=== PATIENT | female | born 1945 | race Caucasian/White ===

== ENCOUNTER 2025-01-03 17:11 | Inpatient (IN) | payer MEDICARE, OTHER, SELFPAY ==
[2025-01-03] VITALS (9 sets, daily range): BP systolic 98–143; BP diastolic 46–96; BMI 30.1; BMI 29.6
--- NOTE | 2025-01-03 13:49 | ED.GENMED ---
History of Present Illness
General
Chief Complaint: Weakness
Time Seen by Provider: 01/03/25 13:32
History of Present Illness
History of Present Illness:
79-year-old female with a past medical history of hypertension presents to the emergency department for evaluation of general malaise and an abnormal EKG. She apparently was seen urgent care 2 days ago for cough, headache, weakness, and fatigue, at
that time had COVID and flu testing that was negative as well as unremarkable bedside labs. She apparently had a chest x-ray that was negative and was started on doxycycline for suspected bronchitis. She was brought back to the urgent care by her
son today due to increasing weakness at which time an EKG revealed atrial fibrillation prompting them to call 911 for transport. Patient states to me that she feels fine, she is unable to provide significant historical details and is disoriented to
time. She denies any chest pain or shortness of breath at this point.
Review of Systems
Review of Systems
Allergies reviewed?: Yes
All Other Systems: ROS reviewed and negative except as documented in HPI and ROS
Phy Exam
Physical Exam
Physical Exam:
GEN: Well appearing, NAD, WDWN
HEENT: Oral mucosa moist, no scleral icterus
Cardiac: Tachycardic and irregular, no murmur, no lower extremity edema
Lung: No respiratory distress, no tachypnea, lungs clear to auscultation bilaterally
MSK: No gross deformity or injuries
Skin: Good color, no pallor or jaundice, no rashes
Neuro: Alert and oriented to self and place, disoriented to time, moves all extremities freely
Psych: Calm, cooperative
Sepsis
Sepsis Screening
Sepsis Assessment: Sepsis Ruled Out
Sepsis Screen
Sepsis Screen: Sepsis Ruled Out
Date: 01/03/25
Time: 17:11
Course
Orders/Labs/Results
Orders:
Orders
01/03/25 13:33
Electrocardiogram (*1) Urgent
Reason for Study: Abnormal EKG
EKG- Treatment ONCE
01/03/25 13:42
Complete Blood Count/With Diff Urgent
Comprehensive Metabolic Panel Urgent
NT-proBNP Urgent
Comment: ADD ON
TSH Reflex To Free T4 Urgent
Comment: ADD ON
Troponin I Urgent
01/03/25 13:49
Add On- LAB Urgent
Tests Added?: TSH w reflex
CR Chest - 2 Views Urgent
Comment:
Reason For Exam: cough, weakness
01/03/25 14:36
CT Head W/o Iv Contrast Urgent
Comment:
Reason For Exam: AMS
01/03/25 14:57
Add On- LAB Urgent
Tests Added?: BNP
01/03/25 16:01
Urinalysis Reflex To Culture Urgent
Date Specimen was Collected: 01/03/25
Time Specimen was Collected: 14:50
01/03/25 16:16
Heparin 4,000 units IV NOW STA
Metoprolol [Lopressor] 25 mg PO NOW STA
Nursing to Place Non Medication Order As Directed
Physician Order: PTT 6 hours after initial start of Heparin infusion
Above order entered?: Yes
01/03/25 16:20
0.9% Sodium Chloride 1000 ml [Nss] 1,000 ml IV BOLUS
01/03/25 16:30
Heparin 19074 Units/250 ml 25,000 units in 250 ml IV PER PROTOCOL
Weight to be used for heparin protocol in kilograms (kg):: 89.9
Protocol:: Cardiac Tx/Acute Coronary
PTT Goal Range to be used:: PTT 73 to 111 seconds
Order type:: Initial
INITIAL Infusion Dose (UNITS/KG/hr) & then follow protocol:: 12 units/kg/hr
Infusion Dose in UNITS/hr & then follow protocol (UNITS/hr):: 1,000
INFUSION RATE in mL/hr & then follow protocol (mL/hr):: 10
PTT less than or equal to 64 seconds:: Increase rate by 200 units/hr (+ 2 mL/hr)
PTT 64.1 to 72.9 seconds:: Increase rate by 100 units/hr (+ 1 mL/hr)
PTT 73 to 111 seconds:: Target Range. No change in rate.
PTT 111.1 to 130.9 seconds:: Decrease rate by 100 units/hr (- 1 mL/hr)
PTT 131 to 199.9 seconds:: HOLD for 1 hr. Then decrease rate by 200 units/hr (- 2 mL/hr)
PTT greater than or equal to 200 seconds:: HOLD for 2 hrs & Notify Provider. Then decrease by 200 units/hr (-
2 mL/hr)
Lab follow-up:: Each change, PTT q6h until 2 consecutive are therapeutic. Then PTT
daily.
01/03/25 16:44
PTT Urgent
Comment: Obtain baseline before beginning heparin infusion if not already collected
01/03/25 16:46
Admit/Transfer Patient As Directed
Co-Sign Provider:
Level of Care: Inpatient admission
Assign to:: Telemetry
Physician / Group: rony
Diagnosis: afib rvr
Reason for Telemetry: Arrhythmia
Date to Stop Telemetry: 01/06/25
Time to Stop Telemetry: 11:00
Reason for Hospitalization: afib rvr
Expected length of stay greater than two midnights?: Yes
ELOS- Estimated Length of Stay in days: 2
I certify the patient meets the requirements for IP care: Yes
Code Status As Directed
Resuscitation Status: Do not resuscitate
Reached after discussion with pt or family/Healthcare POA: Yes
PRN Pain Medication Management As Directed
May give lesser potent ordered pain med per pt: Yes
preference::
Protocol:: Medication orders for pain may be administered in a
manner that supports deferring to patient preference
when the pt is:
- Requesting an ordered lesser potent pain medication.
Least to most potent pain medications are defined
as: acetaminophen < NSAID < tramadol < opioids
(morphine, oxycodone, hydromorphone).
- Requesting a lesser dose of the same medication IF
ORDERED.
- Requesting a less intrusive route of administration
if both routes are prescribed by the provider (PO <
IV).
01/03/25 16:47
DNR Bracelet Application ONCE
01/03/25 22:56
PTT Urgent
Comment: Obtain baseline before beginning heparin infusion if not already collected
01/06/25 11:00
DC Protocol for Telemetry ONCE
Abnormal Lab Results
01/03/25
13:42
Absolute Lymphs (auto) 3.6 H 10^3/uL
(1.2-3.4)
Absolute Monos (auto) 0.9 H 10^3/uL
(0.1-0.6)
Sodium 134 L mmol/L
(135-145)
BUN 20 H mg/dl
(7-17)
Glucose 114 H mg/dl
(70-99)
Calcium 11.1 H mg/dl
(8.4-10.2)
01/03/25 13:42
01/03/25 13:42
Vital Signs
Initial and Last Documented VS:
Initial Vital Signs
Pulse Resp BP Pulse Ox
104 27 115/84 100
01/03/25 13:33 01/03/25 13:33 01/03/25 13:33 01/03/25 13:33
Last Documented Vital Signs
Temp Pulse Resp BP Pulse Ox
98 F 97 19 101/56 97
01/03/25 13:39 01/03/25 17:00 01/03/25 17:00 01/03/25 16:45 01/03/25 16:30
MDM/Problems Addressed
MDM/Problems Addressed:
Unclear etiology to the patient's intermittent encephalopathy, certainly could be on the basis of poor p.o. intake for the past 24 to 48 hours. She is noted to be in a mildly rapid A-fib on arrival with no known history of this, will rate control
with oral beta-blockers at this time. Will start on heparin in the event that any cardiac interventions would be planned by cardiology. She does have a cough and had outpatient negative COVID and flu test at urgent care, coughing may be on the
basis of pulmonary fluid retention due to untreated A-fib however does not appear grossly volume overloaded to warrant diuresis at this point. Will admit to the hospitalist service for further management
Comment
Comment:
Initial EKG independently interpreted by me shows an atrial fibrillation with a rapid response at a rate of [address] changes concerning for ischemia
*Pulse Oximetry
Patient hypoxic: no
Comment: 100% room air
*Critical Care Note
Total Time (30-74mins, 75-104mins- exclusive of procedures): Not Applicable
ED Attending Note
-
Portions of this chart may have been created with voice recognition software.� Occasional wrong word or��sound alike� substitutions may have occurred due to the inherent limitations of voice recognition software.
Discharge Plan
Departure
Patient Disposition: Admit
Date of Disposition: 01/03/25
Time of Disposition: 16:28
Presentation/result/management discussed w/ accepting MD/DO: Hospitalist
Discharge Problem:
Atrial fibrillation with RVR, Encephalopathy, Generalized weakness
Referrals:
Pablo Mayers MD [Family Provider, Family Practice]
Interventions
Interventions:
*Risk Screen - Suicide Last Done: 01/03/25 13:39
*General Assessment Last Done: 01/03/25 13:39
*Neglect/Abuse Screening Last Done: 01/03/25 13:39
*ED- Fall Risk Assessment Last Done: 01/03/25 13:39
*ED COVID-19 Vaccine History Last Done: 01/03/25 13:39
ED- Cardiac Assessment Last Done: 01/03/25 13:58
ED- Neurological Assessment Last Done: 01/03/25 13:58
ED- Pulmonary Assessment Last Done: 01/03/25 13:58
Discharge Date and Time
Print Language: GERMAN
[2025-01-03 13:50] LABS: % Basophils 0.6 % (0-2); % Immature Granulocytes 0.4 % (0-0.5); % Lymphocytes 35.1 % (20.5-51.1); % Monocytes 8.8 % (1.7-9.3); % Neutrophils 54.1 % (42.2-75.2); Absolute Basophils 0.1 10^3/uL (0-0.2); Absolute Eosinophils 0.1 10^3/uL (0-0.7); Absolute Lymphocytes 3.6 10^3/uL (1.2-3.4); Absolute Monocytes 0.9 10^3/uL (0.1-0.6); Absolute Neutrophils 5.5 10^3/uL (1.4-6.5); Hematocrit 42.5 % (37.0-47.0); Hemoglobin 14.4 g/dL (12.0-16.0); Mean Corp Hgb Conc. 33.9 g/dL (33.0-37.0); Mean Corpuscular Hgb 28.5 pg (27.0-31.0); Mean Corpuscular Volume 84.2 fL (81.0-99.0); Mean Platelet Volume 10.3 fL (7.4-10.4); Nucleated Red Blood Cells % 0 %; Platelet Count 356 10^3/uL (130-400); Red Blood Cell Count 5.05 10^6/uL (4.20-5.40); Red Cell Dist. Width 13.6 % (11.5-14.5); White Blood Cell Count 10.1 10^3/uL (4.8-10.8)
[2025-01-03 14:19] LABS: Troponin I < 0.012 ng/ml
[2025-01-03 14:27] LABS: ALT (SGPT) 25 U/L (0-35); AST (SGOT) 25 U/L (14-36); Alkaline Phosphatase 113 U/L (38-126); Blood Urea Nitrogen 20 mg/dl (7-17); Calcium 11.1 mg/dl (8.4-10.2); Carbon Dioxide 27 mmol/L (22-30); Chloride 101 mmol/L (98-107); Estimated Creatinine Clearance 58 ml/min; Glucose 114 mg/dl (70-99); Potassium 3.9 mmol/L (3.5-5.1); Sodium 134 mmol/L (135-145); Total Protein 6.5 g/dl (6.3-8.2); eGFR > 60.00
[2025-01-03 14:44] LABS: TSH Reflex To Free T4 1.49 uIU/ml (0.47-4.68)
[2025-01-03 15:47] LABS: NT-proBNP 4820 pg/ml
[2025-01-03 16:07] LABS: Urine Albumin Negative (Neg - Trace); Urine Bilirubin Negative (Negative); Urine Character Clear (Clear); Urine Color Yellow; Urine Glucose Negative (Negative); Urine Ketone Negative (Negative); Urine Leukocyte Negative (Negative); Urine Nitrite Negative (Negative); Urine Occult Blood Negative (Negative); Urine Urobilinogen Negative (Neg - 1+)
[2025-01-03] MEDS: NSS 1000 IV ×2 (16:44→18:48)
[2025-01-03] MEDS: LOPRESSOR 25 MG PO (16:45)
--- NOTE | 2025-01-03 16:48 | HPS.HSE ---
Addendum entered and electronically signed by Franklyn Cadet MD 01/03/25 22:40:
Started metoprolol succinate 12.5 mg BID.
Original Note:
Family Physician
-
Family Physician: Pablo Mayers
Chief Complaint
-
upper respiratory symptoms
History of Present Illness
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 She was seen in urgent care 2 days ago for cough,
headache, weakness and fatigue and had flu and COVID testing that was negative and unremarkable labs. She had a chest x-ray that was negative and started on doxycycline for suspected bronchitis. She was brought back to urgent care by her son today
due to increasing weakness and during this visit she was more out of it and confused. EKG revealed atrial fibrillation prompting them to call 911. Patient states that she feels fine and is unable to provide significant history and is disoriented
to time. Eyes any chest pain or shortness of breath. Did have some dizziness today. No vomiting or diarrhea.
Does not smoke or drink alcohol.
No prior cardiac history.
Medical History
Past Medical History
Past Medical History: Reports Other (COPD on 2 L based, hypercholesteremia, hypertension)
Past Surgical History: Reports Orthopedic
Social History
Tobacco: Former Smoker
Alcohol: Former
Drug: None
Family History
Family History: Not pertinent
Allergies / Home Medications
Allergies reflects when Allergies were last updated in [facility].
Home Medications with original date entered in [facility]
Allergy/Medication List:
Allergies
Allergy/AdvReac Type Severity Reaction Status Date / Time
No Known Allergies Allergy Verified 01/03/25 13:43
Review of Systems
-
History Source: Patient
A 12 point ROS was completed and negative except as noted: Yes
Constitutional: Reports No Symptoms
EENT: Reports No Symptoms
Respiratory: Reports No Symptoms
Cardiac: Reports No Symptoms
Abdomen/GI: Reports No Symptoms
: Reports No Symptoms
Musculoskeletal: Reports No Symptoms
Skin: Reports No Symptoms
Neurological: Reports No Symptoms
Endocrine: Reports No Symptoms
Hematologic/Lymphatic: Reports No Symptoms
Psych: Reports No Symptoms
Physical Exam
Vital Signs
Vital Signs
Temp Pulse Resp BP Pulse Ox
98 F 91 23 101/56 98
01/03/25 13:39 01/03/25 16:45 01/03/25 16:00 01/03/25 16:45 01/03/25 15:45
Physical Exam
General: Well Developed, Well Nourished and No Apparent Distress
HEENT: NormoCephalic, Moist mucous membranes and Atraumatic
Respiratory: Clear
Cardiac: S1/S2 and Regular Rhythm; No Murmur or Rub
GI: Soft, Non Tender, Non Distended and Normal Bowel Sounds; No Organomegaly
Rectal: Deferred by Provider
Musculoskeletal: No Clubbing, No Cyanosis and No Edema
Skin: No Rash
Neuro: Nonfocal/grossly intact
Laboratory Results
-
01/03/25 13:42
01/03/25 13:42
Laboratory Results
Total Bilirubin 1.0 mg/dl (0.2-1.3) 01/03/25 13:42
AST 25 U/L (14-36) 01/03/25 13:42
ALT 25 U/L (0-35) 01/03/25 13:42
Alkaline Phosphatase 113 U/L (38-126) 01/03/25 13:42
Troponin I < 0.012 ng/ml 01/03/25 13:42
Data Reviewed
-
Lab Data: Labs Reviewed by me
Old Records: Reviewed
Impression/Plan
-
IMPRESSION:
PLAN:
# New onset atrial fibrillation with intermittent RVR likely from hypovolemia/URI
-EKG shows atrial fibrillation with RVR heart rate 106
- Variable rates
-Lopressor given
- Heparin drip
- Check echo
- Cardiology consulted
# Metabolic encephalopathy/generalized malaise secondary to likely viral URI/acute bronchitis
-Mental status improved at this time
- CT head shows no acute abnormality
- Chest x-ray unremarkable
- Urinalysis unremarkable
-Continue doxycycline
# Mild hypercalcemia secondary to hypovolemia
-Calcium 11.1
-Monitor with IV fluids
COPD on 2 L baseline
- Continue inhalers
Essential hypertension
Hypercholesterolemia
- Continue statin
DNR/DNI
DVT prophylaxis�heparin drip
Regular diet
[2025-01-03] MEDS: HEPARIN 4000 UNITS IV (16:55)
[2025-01-03] MEDS: HEPARIN 25000 UNITS/250 ML IV (16:56)
[2025-01-03 17:06] LABS: APTT 26.2 Sec (23.4-35.0)
--- NOTE | 2025-01-03 19:40 | PTCARENOTE ---
Received pt from ED into room 408-2. Pt ambulatory to bed with assist x1. Pt AAOx2. Forgetful at times, bed alarm in place. Educated pt to ring for assistance. NS @ 80 ml/hr infusing. Heparin gtt at 10ml/hr infusing. No needs at this time.
[2025-01-04 00:06] LABS: APTT 48.5 Sec (23.4-35.0)
[2025-01-04 03:06] VITALS: BP 141/68
[2025-01-04] MEDS: NSS 1000 IV ×2 (06:41→20:58)
[2025-01-04 06:54] LABS: % Basophils 0.6 % (0-2); % Eosinophils 1.8 % (0-6); % Immature Granulocytes 0.3 % (0-0.5); % Lymphocytes 43.6 % (20.5-51.1); % Neutrophils 44.7 % (42.2-75.2); Absolute Basophils 0.1 10^3/uL (0-0.2); Absolute Eosinophils 0.1 10^3/uL (0-0.7); Absolute Lymphocytes 3.5 10^3/uL (1.2-3.4); Absolute Monocytes 0.7 10^3/uL (0.1-0.6); Absolute Neutrophils 3.6 10^3/uL (1.4-6.5); Hematocrit 35.9 % (37.0-47.0); Hemoglobin 12.1 g/dL (12.0-16.0); Mean Corp Hgb Conc. 33.7 g/dL (33.0-37.0); Mean Corpuscular Hgb 28.9 pg (27.0-31.0); Mean Corpuscular Volume 85.7 fL (81.0-99.0); Mean Platelet Volume 11.7 fL (7.4-10.4); Nucleated Red Blood Cells % 0 %; Platelet Count 282 10^3/uL (130-400); Red Blood Cell Count 4.19 10^6/uL (4.20-5.40); Red Cell Dist. Width 13.8 % (11.5-14.5)
[2025-01-04 07:04] LABS: APTT 110.1 Sec (23.4-35.0)
--- NOTE | 2025-01-04 07:21 | PTCARENOTE ---
Pt aaox3 able to make her needs known,forgetful at times only.Denies pain or any discomfort.Pt was in afibb in beginning of shift later pt converted to Sinus rhythm.EKG was done on pt. 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
drip as per protocol. No new orders at this time.Plan of care continued.
[2025-01-04 07:33] LABS: ALT (SGPT) 21 U/L (0-35); AST (SGOT) 24 U/L (14-36); Albumin 3.3 g/dl (3.5-5.0); Alkaline Phosphatase 90 U/L (38-126); Blood Urea Nitrogen 13 mg/dl (7-17); Calcium 9.4 mg/dl (8.4-10.2); Carbon Dioxide 26 mmol/L (22-30); Chloride 107 mmol/L (98-107); Estimated Creatinine Clearance 73 ml/min; Glucose 112 mg/dl (70-99); Potassium 3.7 mmol/L (3.5-5.1); Sodium 136 mmol/L (135-145); Total Bilirubin 0.6 mg/dl (0.2-1.3); Total Protein 5.4 g/dl (6.3-8.2); eGFR > 60.00
--- NOTE | 2025-01-04 07:41 | W.PN.HOSP.TC ---
Today's Communication/Plan
-
pending DOAC pricing.
Echocardiogram pending.
Assessment / Plan
Assessment / Plan
Impression:
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 She was seen in urgent care 2 days ago for cough,
headache, weakness and fatigue and had flu and COVID testing that was negative and unremarkable labs. She had a chest x-ray that was negative and started on doxycycline for suspected bronchitis. She was brought back to urgent care by her son today
due to increasing weakness and during this visit she was more out of it and confused. EKG revealed atrial fibrillation , admitted to the hospital and started on beta-norma, converted to sinus rhythm, seen by cardiology, echocardiogram pending.
Assessment/plan:
New onset atrial fibrillation with intermittent RVR likely from hypovolemia/URI
-EKG shows atrial fibrillation with RVR heart rate 106
- Variable rates
-Lopressor given
- Heparin drip
- Check echo
- Cardiology consulted
01/04
Patient converted to sinus rhythm
Seen by cardiology, started on Eliquis.
science manager consulted for a DOAC pricing.
Echocardiogram pending
Acute Metabolic encephalopathy/generalized malaise secondary to likely viral URI/acute bronchitis
-Mental status improved at this time
- CT head shows no acute abnormality
- Chest x-ray unremarkable
- Urinalysis unremarkable
-Continue doxycycline
Mild hypercalcemia secondary to hypovolemia
-Calcium 11.1
-Improved with IV fluids
COPD on 2 L baseline
- Continue inhalers
Essential hypertension
Continue metoprolol
Hypercholesterolemia
- Continue statin
DVT prophylaxis�heparin drip
Regular diet
CODE STATUS: DNR/DNI
DVT prophylaxis: Eliquis
Diet: Regular diet
Disposition: pending DOAC pricing.
Echocardiogram pending
Total time spent on today's encounter was 65 minutes which included time spent in counseling the patient/family regarding diagnosis and treatment plan as listed above, goals of care, and symptom management. Case was discussed with nursing staff,
specialists, and care coordinators/case management. All labs and imaging personally reviewed by me. Remainder the time spent in detailed review of previous records, lab data, imaging, and other medical provider documentation.
Anticipated Discharge: Within 24 hours
Subjective/Interval History
-
Date of Service: January 04, 2025
Patient seen and examined at bedside, denies any chest pain or shortness of breath, no abdominal pain, no nausea, no vomiting, no diarrhea or constipation.
Back to sinus rythm.
Objective Data
-
Labs:
Laboratory Results
01/03/25 01/04/25 01/04/25
23:37 06:41 12:45
WBC 8.0
Hgb 12.1
Hct 35.9 L
Plt Count 282 D
APTT 48.5 H 110.1 H Pending
Sodium 136
Potassium 3.7
Chloride 107
Carbon Dioxide 26
BUN 13
Creatinine 0.7
Glucose 112 H
Calcium 9.4 D
Total Bilirubin 0.6
AST 24
ALT 21
Alkaline Phosphatase 90
Vital Signs:
Vital Signs
Temp Pulse Resp BP Pulse Ox
98.0 F 67 16 141/68 100
01/04/25 03:06 01/04/25 03:06 01/04/25 03:06 01/04/25 03:06 01/04/25 03:06
I&O
01/03/25 01/04/25 01/05/25
06:59 06:59 06:59
Intake Total 2059
Output Total 2074
Balance -
Physical Exam
-
General: Well Developed, Well Nourished, No Apparent Distress and Comfortable
HEENT: Normocephalic, Atraumatic, Moist Mucous Membranes, No Ptosis, PERRLA and Nose Appears Normal
Respiratory: Clear to Auscultation and Non Labored Respirations
Cardiac: Regular Rhythm and S1/S2
Breast: Deferred by me
GI: Soft, Nontender, Nondistended and Normal Bowel Sounds
Genito-urinary: No Costovertebral Tender
Musculoskeletal: No Clubbing, No Cyanosis and No Edema
Skin: Warm
Neuro: Awake, Alert, Oriented, AO x 3 and No Motor Deficits
Psych: Calm
Data Reviewed
-
Diagnostic Radiology: Image personally visualized and interpreted and Report Reviewed by me
CT Scan: Image personally visualized and interpreted and Report Reviewed by me
Ultrasound: Image personally visualized and interpreted and Report Reviewed by me
MRI: Image personally visualized and interpreted and Report Reviewed by me
Medical Tests (Nuc Med, Echo etc): Image personally visualized and interpreted and Report Reviewed by me
Labs: Labs Reviewed by me
Old Records: Reviewed
[2025-01-04] MEDS: LOPRESSOR 12.5 MG PO ×2 (08:37→20:59)
[2025-01-04 08:45] VITALS: BP 137/61
--- NOTE | 2025-01-04 10:33 | CON.CAR ---
Consultation
Consultation Request
Date/Time Consultation Requested: 01/03/2025 at 22:39
Date/Time Consultation Performed: 01/04/2025 at 10:00
Requesting Provider: Dr. Cadet
Performing Provider: Dr. Sykes
Reason for Consultation: AF w RVR
Medical History
-
Chief Complaint: AF w RVR
History of Present Illness:
79-year-old female with history of COPD, hyperlipidemia, hypertension who presents with 1 week of malaise and shortness of breath, found to be in A-fib with RVR. She recently moved here from [place] and follows with Dr. Higginbotham for cardiology. She
has never been told she has atrial fibrillation before. She was seen in urgent care twice this week and diagnosed with URI. The second time they sent her into the hospital because they noted atrial fibrillation on her ECG. She received IV fluids
and metoprolol in the ER and is now in NSR. She feels better. She denies chest pain, palpitations, shortness of breath, and lower extremity edema.
Past Medical History
Past Medical History: Other (As above)
Past Surgical History: Other (Not relevant)
Social History
Tobacco: Non-Smoker
Living: Alone
Family History
Family History: Reviewed & Not Pertinent
Allergies / Home Medications
Allergy/AdvReac Type Severity Reaction Status Date / Time
No Known Allergies Allergy Verified 01/03/25 13:43
Review of Systems
-
All other systems: Negative unless noted
Physical Exam
Vital Signs
Temp Pulse Resp BP Pulse Ox
97.6 F 68 18 137/61 98
01/04/25 08:45 01/04/25 08:45 01/04/25 08:45 01/04/25 08:45 01/04/25 08:45
Lab Results
01/04/25 06:41
01/04/25 06:41
Troponin I < 0.012 ng/ml 01/03/25 13:42
Qoe-J-Drueskjyljn Pept 4820 pg/ml 01/03/25 13:42
Physical Exam
General: Well Developed and Well Nourished
Respiratory: Clear and Non Labored Respirations
Cardiac: S1/S2 and Regular Rhythm; Negative Murmur or Peripheral Edema
Neuro: AO x 3
Impression / Plan
-
79-year-old female with history of COPD, hyperlipidemia, hypertension who presents with 1 week of malaise and shortness of breath, found to be in A-fib with RVR.
Paroxysmal atrial fibrillation
-New diagnosis this admission. Possibly symptomatic with malaise and mild shortness of breath. No palpitations.
-She converted to NSR around 1 AM on 01/04/2025 after receiving p.o. metoprolol
-Continue metoprolol 12.5 mg twice daily
-[id number] at least 4 (age, female, hypertension)
-Case management to alvares Eliquis and Xarelto
-TTE tomorrow
Hypertension
-Clarify home meds. Normotensive here.
Data Reviewed
-
EKG: Tracing Personally Visualized and interpreted, Discussed with Physician and Discussed with Patient
Labs: Labs Reviewed by me and Discussed with Patient
[2025-01-04 11:29] VITALS: BP 132/64
[2025-01-04 13:11] LABS: APTT 32.1 Sec (23.4-35.0)
[2025-01-04] MEDS: ELIQUIS 5 MG PO ×2 (13:34→20:59)
--- NOTE | 2025-01-04 14:08 | CM ---
project management manager reviewed patient's chart and patient reports that she lives alone in a one story home with no steps to enter, patient is independent with adl's and ambulation, patient has home oxygen but does not remember the name of the oxygen
company. case technician was asked to obtain the cost of Eliquis and Xarelto, Eliquis is $140.11 per month and Xarelto is $138.22 per month. Emily is aware of cost.
PCP: Pablo Mayers
Pharmacy: [facility] in [place]
[2025-01-04 15:33] VITALS: BP 141/65
[2025-01-04 19:32] VITALS: BP 138/65
[2025-01-04 23:02] VITALS: BP 147/71
[2025-01-05 03:21] VITALS: BP 140/80
[2025-01-05 06:38] LABS: Hematocrit 37.7 % (37.0-47.0); Hemoglobin 12.4 g/dL (12.0-16.0); Mean Corp Hgb Conc. 32.9 g/dL (33.0-37.0); Mean Corpuscular Hgb 28.1 pg (27.0-31.0); Mean Corpuscular Volume 85.5 fL (81.0-99.0); Mean Platelet Volume 11.1 fL (7.4-10.4); Platelet Count 299 10^3/uL (130-400); Red Blood Cell Count 4.41 10^6/uL (4.20-5.40); Red Cell Dist. Width 13.6 % (11.5-14.5); White Blood Cell Count 6.6 10^3/uL (4.8-10.8)
[2025-01-05 07:31] LABS: Blood Urea Nitrogen 14 mg/dl (7-17); Carbon Dioxide 22 mmol/L (22-30); Chloride 112 mmol/L (98-107); Estimated Creatinine Clearance 73 ml/min; Glucose 104 mg/dl (70-99); Potassium 3.9 mmol/L (3.5-5.1); Sodium 140 mmol/L (135-145); eGFR > 60.00
--- NOTE | 2025-01-05 07:52 | W.PN.CD ---
Today's Communication / Plan
-
- Toprol XL 12.5 mg BID
- Eliquis 5 mg BID
- KCL x1 today
- Consider starting SSRI
- Likely discharge after ECHO- if normal.
Impression / Plan
-
79-year-old female with history of COPD, hyperlipidemia, hypertension who presents with 1 week of malaise and shortness of breath, found to be in A-fib with RVR.
Paroxysmal atrial fibrillation
-New diagnosis this admission. Possibly symptomatic with malaise and mild shortness of breath. No palpitations.
-She converted to NSR around 1 AM on 01/04/2025 after receiving p.o. metoprolol
-Continue metoprolol 12.5 mg twice daily
-[id number] at least 4 (age, female, hypertension)
-Case management to alvares Eligonzalez and Xarelto
-TTE today
- Replace K for hypokalemia.
Hypertension
-Clarify home meds. Normotensive here.
Depression
- Sleepy most of the time, depressed, loss of appetite, withdrawn, loss of interest.
- Depression evaluation
- TSH 1.49
- Consider SSRI
Physical Exam
Vital Signs/Labs
Vital Signs
Temp Pulse Resp BP Pulse Ox
97.6 F 71 18 140/80 93
01/05/25 03:21 01/05/25 03:21 01/05/25 03:21 01/05/25 03:21 01/05/25 03:21
01/04/25 01/05/25 01/06/25
06:59 06:59 06:59
Actual Weight 88.314 kg
01/05/25 06:24
01/05/25 06:24
APTT 32.1 Sec (23.4-35.0) 01/04/25 12:51
01/03/25
13:42
Cav-T-Effslabqgvq Pept 4820
LAB Results
01/03/25
13:42
Troponin I < 0.012
Physical Exam
Constitutional: No acute distress and Comfortable
EENT: Anicteric and Moist mucous membranes
Cardiovascular: Rhythm & rate is regular, Pedal edema is absent, JVD pressure is normal and Murmur/rub/gallop absent
Respiratory: Respiratory effort normal, Lungs clear to auscul. and Wheeze Absent
GI: Soft, Non tender and Normal bowel sounds
Neuro/Psych: Alert, Oriented and AO x 3
Data Reviewed
-
Date of Service: January 05, 2025
Medical Decision Making: Reviewed Test Results, Test Interpretation and Review of Case with other Provider
EKG: Tracing Personally Visualized and interpreted
Echo: Ordered by me
Labs: Labs Reviewed by me
Old Records: Reviewed
[2025-01-05 08:05] VITALS: BP 169/83
[2025-01-05] MEDS: LOPRESSOR 12.5 MG PO (09:15)
[2025-01-05] MEDS: ELIQUIS 5 MG PO (09:16)
--- NOTE | 2025-01-05 09:48 | W.PN.HOSP.TC ---
Addendum entered and electronically signed by Mariaa Ronquillo MD 01/06/25 08:08:
Chronic hypoxic respiratory failure
Original Note:
Today's Communication/Plan
-
dc to home after PT/OT evals
Assessment / Plan
Assessment / Plan
Echo 01/05:
Normal biventricular size and systolic function without regional wall motion
abnormality.
Normal diastolic function.
Mild to moderate mitral regurgitation.
Mildly dilated right atrium.
Mild tricuspid regurgitation.
Moderate pulmonary HTN, estimated PASP 61 mmHg.
No prior study available for comparison
Assessment:
New onset Parox A.Fib
- now in NSR; on Lopressor + Eliquis
- Echo: as above
- OP Cards f/u
Acute Metabolic encephalopathy/generalized malaise secondary to likely viral URI/acute bronchitis
- resolved
- CT head negative
Mild hypercalcemia secondary to hypovolemia
- calcium 11.1
- Improved with IV fluids
COPD on 2 L baseline
- continue inhalers
Essential hypertension
- continue metoprolol
Hypercholesterolemia
- continue statin
DVT ppx: Eliquis
Code: DNR/DNI
More than 30 minutes spent in discharge including
Final examination of the patient
Summarizing hospital stay
Instructions for continuing care to all relevant caregivers
Preparation of discharge records, prescriptions, and referral forms
Total time spent (in minutes): 41
Anticipated Discharge: Today
Subjective/Interval History
-
Date of Service: January 05, 2025
resting comfortably, no complaint at present
Objective Data
-
Labs:
Laboratory Results
01/05/25
06:24
WBC 6.6
Hgb 12.4
Hct 37.7
Plt Count 299
Sodium 140
Potassium 3.9
Chloride 112 H
Carbon Dioxide 22
BUN 14
Creatinine 0.7
Glucose 104 H
Calcium 10.0
Vital Signs:
Vital Signs
Temp Pulse Resp BP Pulse Ox
97.9 F 78 18 168/80 98
01/05/25 08:05 01/05/25 09:15 01/05/25 08:05 01/05/25 09:15 01/05/25 08:05
I&O
01/04/25 01/05/25 01/06/25
06:59 06:59 06:59
Intake Total 2059
Output Total 2074
Balance - / -
Physical Exam
-
General: No Apparent Distress
HEENT: Normocephalic and Atraumatic
Respiratory: Negative Wheezes
Cardiac: Regular Rhythm and S1/S2
GI: Soft and Nontender
Genito-urinary: No Costovertebral Tender
Neuro: AO x 3
Hematologic / Lymphatic: No Lymphadenopathy
Psych: Calm
Data Reviewed
-
Total Time Spent with Patient (in minutes): 41
Labs: Labs Reviewed by me
[2025-01-05 11:53] VITALS: BP 134/71
--- NOTE | 2025-01-05 13:21 | W.DS.TRANS ---
DC Summary - Access Services Assistant
-
Discharge Instructions:
Discharge Diagnosis/Procedures upper respiratory tract infection and new onset
A. Fib
Diet Regular
Activity As tolerated
Instructions:
Stand-Alone Forms:
Changes to Home Medications: No
Discharge Medications:
DC Medications w/original date entered in [employer]
apixaban 5 mg tablet (Eliquis) 5 mg PO BID #60 tabs 01/05/25
metoprolol tartrate 25 mg tablet 12.5 mg (1/2 x 25 mg) PO BID #30 tabs 01/05/25
Home Medication Changes
Pending Results: No
Total time spent discharging patient (in min): 41
--- NOTE | 2025-01-05 13:59 | W.DS.TRANS ---
DC Summary - Scale Technician
-
Discharge Instructions:
Discharge Diagnosis/Procedures upper respiratory tract infection and new onset
A. Fib
Diet Regular
Activity As tolerated
Instructions:
Stand-Alone Forms:
Changes to Home Medications: No
Discharge Medications:
DC Medications w/original date entered in [facility]
Vitamin D3 2,000 mcg PO Q OTHER DAY 01/05/25
albuterol sulfate 0.63 mg/3 mL solution for nebulization 0.63 mg inhalation QIDPRN PRN SOB 01/05/25
apixaban 5 mg tablet (Eliquis) 5 mg PO BID #60 tabs 01/05/25
atorvastatin 80 mg tablet 80 mg PO QPM 01/05/25
lisinopril 40 mg tablet 40 mg PO QPM 01/05/25
metoprolol tartrate 25 mg tablet 12.5 mg (1/2 x 25 mg) PO BID #30 tabs 01/05/25
potassium chloride 10 mEq tablet,extended release 10 meq PO QD-BID 01/05/25
sertraline 100 mg tablet (Zoloft) 100 mg PO QPM 01/05/25
Home Medication Changes
Pending Results: No
Total time spent discharging patient (in min): 41
[2025-01-05 14:29] VITALS: BP 126/90; PULSE 72; O2SAT 92
--- NOTE | 2025-01-05 14:37 | CM ---
Spoke with PT/OT who advised Home Health. Met with patient, her son was at bedside. Patient declined Home Health stating that she does not feels that she needs it. Patient was advised that if she changes her mind, they can be ordered. Patient signed
IMM. She had no further concerns. Her son will take her home.
Plan: Case management will continue to follow and assist with discharge planning. Patient would like to return home, no needs.
[2025-01-05 15:08] VITALS: BP 126/90; PULSE 72; O2SAT 92
--- NOTE | 2025-01-05 15:53 | PN.CDI ---
CDI
- -
CDI:
Physician Documentation Request
Admit Date: 01/03/25 17:11
Dear Doctor,
Please review the following and provide your response in the progress notes.
Clinical Indicators:
pt admitted with New onset Parox A.Fib and Acute Metabolic encephalopathy/generalized malaise secondary to likely viral URI/acute bronchitis.
01/05 Progress Note: ' COPD on 2 L baseline'
Clarify which of the following accurately represents the patient's respiratory status:
Chronic respiratory failure (please indicate type)
Other
Additional information for Respiratory Failure:
Recognized criteria for Respiratory Failure (Source: Randy Fox. 2018June 11.
Documentation tips: Acute Respiratory Failure, The Hospitalist.)
ABGs: (1 or more) Symptoms Please indicate type if known
1. p)2 <60 or RA SPO2 <91% on RA 1. Tachypnea, SOB, dyspnea Hypoxic
2. pCO2 >45 and pH <7.35 2. Use of accessory muscles Hypercapnic
3. pO2 decrease of pCO2 increase by 3. Pallor or cyanosis Hypoxic and Hypercapnic
10 mmHg from baseline if known 4. Anxiety or restlessness Other
4. P/F Ratio (pO2/FiO2)nless than 300 5. Unable to speak in full sentences
Use of terms such as suspected, likely, concern for, or probable (associated with a specific diagnosis that is being evaluated, monitored, or treated as if it exists) are acceptable and can be coded in the inpatient setting, when documented at the
time of discharge.
Thank you,
Amelia Matt RN, BSN
CDI Specialist
[place] [employer]
Please use your independent medical judgment in providing your response.
== END 2025-01-05 15:40 | disposition home or self-care (01) | DRG 640 ==
LOC: 4 EAST ACU 17:11
PROVIDERS: General Practice; Physician Assistant; ADMITTING PHYSICIAN Hospitalist; ATTENDING PHYSICIAN Internal Medicine; CONSULT PHYSICIAN Student in an Organized Health Care Education/Training Program; EMERGENCY PHYSICIAN Emergency Medicine; FAMILY PHYSICIAN Family Medicine
DX: E86.1 Hypovolemia (principal); G93.41 Metabolic encephalopathy; J44.0 Chronic obstructive pulmonary disease with (acute) lower respiratory infection; J96.11 Chronic respiratory failure with hypoxia; I48.0 Paroxysmal atrial fibrillation; J20.9 Acute bronchitis, unspecified; E83.52 Hypercalcemia; I10 Essential (primary) hypertension; E78.00 Pure hypercholesterolemia, unspecified; F32.A Depression, unspecified; I27.20 Pulmonary hypertension, unspecified; I34.0 Nonrheumatic mitral (valve) insufficiency; I36.1 Nonrheumatic tricuspid (valve) insufficiency; Z66 Do not resuscitate; Z79.899 Other long term (current) drug therapy; Z87.891 Personal history of nicotine dependence; Z85.43 Personal history of malignant neoplasm of ovary; Z90.710 Acquired absence of both cervix and uterus
CPT/HCPCS: 51701; 51798; 70450; 71046; 80048; 80053; 81003; 83880; 84443; 84484; 85025; 85027; 85730; 93005; 93306; 96365; 97163; 97167; 99285